=== PATIENT | male | born 1940 | race Caucasian/White ===

== ENCOUNTER 2021-05-18 13:46 | Emergency (ER) | payer MEDICARE, OTHER ==
[~2021-05-18 13:46] MED LIST: ALLOPURINOL300 MG PO; CALCIUM + VITA1 EACH PO; COLACE100 MG PO; K-DUR20 MEQ PO; LASIX40 MG PO; LIPITOR20 MG PO; NORVASC2.5 MG PO; PROSCAR5 M1 PO; TOPROL XL 25MG25 MG PO
[2021-05-18 17:13] LABS: BASOPHIL 1.3 % (0-2); EOSINOPHIL 2.2 % (0-7); HCT 54.9 % (42.0-52.0); HGB 18.7 g/dl (13.2-18.0); LYMPHOCYTE 25.4 % (15-48); MCH 33.7 pg (25.0-31.0); MCHC 34.1 g/dL (32.0-36.0); MCV 98.9 fL (78.0-100.0); MONOCYTE 10.6 % (0-12); MPV 9.5 fL (6.0-9.5); NEUTROPHIL 60.2 % (41-80); NRBC 0; PLT 144 K/uL (150-400); RBC 5.55 M/uL (4.70-6.00); RDW 13.2 % (11.5-14.0); WBC 7.2 K/uL (4.0-10.5)
[2021-05-18 17:22] LABS: BILIRUBIN NEGATIVE (NEGATIVE); BLOOD NEGATIVE Ery/uL (NEGATIVE); CLARITY CLEAR (CLEAR); COLOR YELLOW (YELLOW); GLUCOSE (U) NORMAL (NORMAL); LEUKOCYTES NEGATIVE Leu/uL (NEGATIVE); NITRITE NEGATIVE (NEGATIVE); PROTEIN NEGATIVE (NEGATIVE); UROBILINOGEN 0.2 mg/dL (0.2-1.0); pH 6.5 (5.0-9.0)
[2021-05-18 17:37] LABS: LACTIC ACID 0.9 mmol/L (0.4-1.9)
[2021-05-18 17:39] LABS: ALBUMIN 4.1 g/dL (3.4-5.0); BILIRUBIN - TOTAL 0.6 mg/dL (0.2-1.0); BUN/CREAT RATIO (CALC) 13.3 RATIO; CREATININE 1.28 mg/dL (0.67-1.17); GLOBULIN (CALCULATION) 4.1 g/dL; TOTAL PROTEIN 8.2 g/dL (6.4-8.2)
== END 2021-05-18 18:39 | disposition home or self-care (01) ==
LOC: FER 13:46
PROVIDERS: Emergency Medicine
DX: R42 Dizziness and giddiness (principal); I10 Essential (primary) hypertension; Z20.822 Contact with and (suspected) exposure to COVID-19
CPT/HCPCS: 36415; 70450; 71046; 80053; 81003; 83605; 84484; 85025; 93005; U0002